=== PATIENT | female | born 1955 | race Caucasian/White ===

== ENCOUNTER → 2018-05-15 20:45 | Outpatient (CLI) | payer BC | END | disposition home or self-care (01) | LOC: D.MAMMO 16:15 | DX: Z12.31 Encounter for screening mammogram for malignant neoplasm of breast (principal) ==

== ENCOUNTER 2019-05-19 13:40 | Outpatient (CLI) | payer BC | END 2019-05-19 14:00 | disposition home or self-care (01) | LOC: D.MAMMO 13:40 | PROVIDERS: ATTEND Family Medicine | DX: Z12.31 Encounter for screening mammogram for malignant neoplasm of breast (principal) ==